=== PATIENT | male | born 1980 | race Caucasian/White ===

== ENCOUNTER 2017-07-01 07:34 | Inpatient (IN) | payer OTHER ==
[~2017-07-01] VITALS: Ht 175.3 cm; Wt 76.7 kg
[2017-07-01] MEDS ORDERED: VISCOUS LIDOCAINE 2% 15 ML UDC PO STA (07:46)
[2017-07-01] MEDS ORDERED: MORPHINE SULFATE 4 MG/ML CPJ (NOT FOR IM USE) IV STA (07:46)
[2017-07-01] MEDS ORDERED: MAGNESIUM/ALUMINUM HYDROXIDE/SIMETHICONE 30ML UDC PO STA (07:46)
[2017-07-01] MEDS ORDERED: SODIUM CHLORIDE 0.9% 1,000 ML IV ONE ×2 (07:46→09:00)
[2017-07-01] MEDS ORDERED: ONDANSETRON HCL 4MG/2ML VIAL IV STA (07:46)
[2017-07-01] MEDS ORDERED: LORAZEPAM 2MG/ML CPJ IV ONE ×2 (08:00→11:15)
[2017-07-01 08:26] LABS: BASOPHILS % 0.3 % (0.0-2.0); HEMATOCRIT. 35.5 % (42.0-52.0); HEMOGLOBIN. 12.5 g/dL (14.0-18.0); LYMPHOCYTES % 9.1 % (20.0-50.0); MEAN CORPUSCULAR HEMOGLOBIN 34.1 pg (28.0-32.0); MEAN CORPUSCULAR VOLUME 96.9 fL (80.0-94.0); MEAN PLATELET VOLUME 10.2 fl (7.4-10.4); MONOCYTES % 8.2 % (2.0-8.0); NEUTROPHILS % 82.4 % (40.0-76.0); PLATELET 149 x1000/uL (130-400); RED BLOOD CELL COUNT 3.67 mill/uL (4.7-6.1); RED CELL DISTRIBUTION WIDTH 12.8 % (11.6-14.6)
[2017-07-01 08:33] LABS: INR 1.5; PROTHROMBIN TIME 15.3 sec (9.4-11.6)
[2017-07-01 08:40] LABS: CARBON DIOXIDE 22 mEq/L (21-32); CHLORIDE 81 mEq/L (98-107)
[2017-07-01 08:44] LABS: CLARITY URINE CLOUDY (CLEAR); COLOR URINE ORANGE (YELLOW); GLUCOSE URINE NEGATIVE (NEGATIVE); KETONES URINE NEGATIVE (NEGATIVE); LEUKOCYTE ESTERASE URINE 2+ (NEGATIVE); NITRITE URINE POSITIVE (NEGATIVE); OCCULT BLOOD URINE TRACE (NEGATIVE); PROTEIN URINE 1+ (NEGATIVE); UROBILINOGEN URINE 0.2 E.U./dL (0.2-1.0)
[2017-07-01] MEDS ORDERED: DEXT 5%/0.45% NACL KCL 20MEQ/L 1,000 ML IV ONE (08:47)
[2017-07-01] MEDS ORDERED: MAGNESIUM 2 G PREMIX 50 ML IV ONE (09:00)
[2017-07-01] MEDS ORDERED: SODIUM CHLORIDE 0.9% 1000ML BAG (SEPSIS BOLUS) IV ONE (10:30)
[2017-07-01] MEDS ORDERED: CEFTRIAXONE 1 G PREMIX 50 ML IV ONE (11:15)
[2017-07-01] MEDS ORDERED: CHLORDIAZEPOXIDE 25MG CAPSULE PO ONE (11:15)
[2017-07-01 13:39] LABS: CARBON DIOXIDE 22 mEq/L (21-32); CHLORIDE 92 mEq/L (98-107)
[2017-07-01 14:30] VITALS: BP 129/88
[2017-07-01 15:00] VITALS: BP 127/90
[2017-07-01 16:00] VITALS: BP 127/90
[2017-07-01 17:39] VITALS: BP 137/89
[2017-07-01] MEDS: POTASSIUM CHLORIDE INJ 40 MEQ in DEXT 5% WATER 250 ML IV NR ×2 (17:57→18:09)
[2017-07-01 20:00] VITALS: BP 134/85
[2017-07-01] MEDS ORDERED: LORAZEPAM 2MG/ML CPJ IV PRN (20:00)
[2017-07-01] MEDS ORDERED: ONDANSETRON HCL 4MG/2ML VIAL IV PRN (20:00)
[2017-07-01] MEDS: CHLORDIAZEPOXIDE 25MG CAPSULE PO SCH (20:12)
[2017-07-01] MEDS: DEXT 5%/0.9% NACL 1,000 ML IV SCH (21:43)
[2017-07-01 22:00] VITALS: BP 129/82
[2017-07-02] VITALS (14 sets, daily range): BP systolic 112–142; BP diastolic 77–108
[2017-07-02] MEDS ORDERED: DIPHENHYDRAMINE 50MG/ML VIAL IV PRN (08:45)
[2017-07-02] MEDS ORDERED: CLONIDINE 0.1MG TABLET PO PRN (08:45)
[2017-07-02] MEDS ORDERED: TRAMADOL 50MG TABLET PO PRN (08:45)
[2017-07-02] MEDS ORDERED: NA PHOS,M-B/NA PHOS,DI-BA ENEMA 118ML PR PRN (08:45)
[2017-07-02] MEDS ORDERED: ACETAMINOPHEN 650MG SUPP PR PRN (08:45)
[2017-07-02] MEDS ORDERED: NA PHOS,M-B/NA PHOS,DI-BA ENEMA 118ML PR SCH (08:45)
[2017-07-02] MEDS ORDERED: HYDROCODONE/ACETAMINOPHEN 5/325MG TABLET PO PRN (08:45)
[2017-07-02] MEDS ORDERED: IPRATROPIUM/ALBUTEROL 0.5-3(2.5)MG/3ML NEB INH PRN (08:45)
[2017-07-02] MEDS ORDERED: GUAIFENESIN 200MG/10ML SUGAR FREE UDC PO PRN (08:45)
[2017-07-02] MEDS ORDERED: MAGNESIUM/ALUMINUM HYDROXIDE/SIMETHICONE 30ML UDC PO PRN (08:45)
[2017-07-02] MEDS ORDERED: DOCUSATE SODIUM 100MG CAPSULE PO PRN (08:45)
[2017-07-02] MEDS ORDERED: ACETAMINOPHEN 650MG/20.3ML UDC GT PRN (08:45)
[2017-07-02] MEDS ORDERED: ONDANSETRON HCL 4MG/2ML VIAL IV PRN (08:45)
[2017-07-02] MEDS: CHLORDIAZEPOXIDE 25MG CAPSULE PO SCH ×3 (08:59→17:32)
[2017-07-02] MEDS: DEXT 5%/0.9% NACL 1,000 ML IV SCH ×2 (09:00→12:43)
[2017-07-02] MEDS ORDERED: MAGNESIUM CITRATE 300ML SOLUTION PO SCH (10:00)
[2017-07-02 12:34] LABS: HEMATOCRIT. 34.5 % (42.0-52.0); MEAN CORPUSCULAR HEMOGLOBIN 34.6 pg (28.0-32.0); MEAN CORPUSCULAR VOLUME 99.2 fL (80.0-94.0); PLATELET 110 x1000/uL (130-400); RED BLOOD CELL COUNT 3.47 mill/uL (4.7-6.1); RED CELL DISTRIBUTION WIDTH 13.2 % (11.6-14.6)
[2017-07-02 12:37] LABS: CHLORIDE 95 mEq/L (98-107)
[2017-07-02 12:45] LABS: CARBON DIOXIDE 23 mEq/L (21-32)
[2017-07-02 13:10] LABS: PLATELET ESTIMATE SLIGHTLY DECREASED
[2017-07-02] MEDS: SODIUM CHLORIDE 0.9% INJ 3ML FLUSH IVF SCH ×2 (13:22→21:01)
[2017-07-02] MEDS ORDERED: POTASSIUM CHLORIDE 20MEQ TABLET SR PO NR ×2 (14:00→17:00)
[2017-07-02] MEDS ORDERED: MICONAZOLE NITRATE 2% OINT 71GM TOP SCH (21:00)
== END 2017-07-03 | disposition left against medical advice (07) | DRG 897 ==
LOC: ER 07:56 → 5EST 11:10 → EDBEDREQ 11:11 → ENRESERV 11:52 → 5EST 15:19
PROVIDERS: ADMIT Family Medicine; ATTEND Family Medicine
DX: F10.239 Alcohol dependence with withdrawal, unspecified (principal); D68.9 Coagulation defect, unspecified; E87.2 Acidosis; E87.1 Hypo-osmolality and hyponatremia; N39.0 Urinary tract infection, site not specified; K70.31 Alcoholic cirrhosis of liver with ascites; F41.9 Anxiety disorder, unspecified; F10.229 Alcohol dependence with intoxication, unspecified; E87.6 Hypokalemia; K80.20 Calculus of gallbladder without cholecystitis without obstruction; Z53.21 Procedure and treatment not carried out due to patient leaving prior to being seen by health care provider
CPT/HCPCS: 36415; 74000; 74176; 76700; 80048; 80053; 81001; 83605; 83690; 85007; 85025; 85027; 85610; 93005; 93970; 96361; 96365; 96367; 96375; 99291; J0696; J2060; J2270; J2405; J3475; J3480; J7030; J7042; J7050; J7060

== ENCOUNTER 2017-08-09 04:58 | Inpatient (IN) | payer OTHER ==
[~2017-08-09] VITALS: Ht 172.7 cm; Wt 66.7 kg
[2017-08-09 06:19] LABS: BASOPHILS % 0.9 % (0.0-2.0); EOSINOPHILS % 0.1 % (0.0-5.0); HEMATOCRIT. 35.1 % (42.0-52.0); HEMOGLOBIN. 11.9 g/dL (14.0-18.0); LYMPHOCYTES % 15.3 % (20.0-50.0); MEAN CORPUSCULAR HEMOGLOBIN 33.5 pg (28.0-32.0); MEAN CORPUSCULAR VOLUME 98.5 fL (80.0-94.0); MEAN PLATELET VOLUME 7.3 fl (7.4-10.4); MONOCYTES % 10.9 % (2.0-8.0); NEUTROPHILS % 72.8 % (40.0-76.0); PLATELET 325 x1000/uL (130-400); RED BLOOD CELL COUNT 3.57 mill/uL (4.7-6.1)
[2017-08-09 06:24] LABS: CLARITY URINE TURBID (CLEAR); COLOR URINE DARK YELLOW (YELLOW); GLUCOSE URINE NEGATIVE (NEGATIVE); KETONES URINE TRACE (NEGATIVE); LEUKOCYTE ESTERASE URINE TRACE (NEGATIVE); NITRITE URINE NEGATIVE (NEGATIVE); OCCULT BLOOD URINE NEGATIVE (NEGATIVE); PH URINE 5.5 (4.5-8.0); PROTEIN URINE TRACE (NEGATIVE); SPECIFIC GRAVITY URINE 1.023 (1.005-1.030)
[2017-08-09 06:24] LABS: INR 1.3; PROTHROMBIN TIME 13.5 sec (9.4-11.6)
[2017-08-09] MEDS ORDERED: MORPHINE SULFATE 4 MG/ML CPJ (NOT FOR IM USE) IV ONE (06:30)
[2017-08-09] MEDS ORDERED: CEFTRIAXONE 2 G PREMIX 50 ML IV ONE (06:45)
[2017-08-09 06:46] LABS: CARBON DIOXIDE 30 mEq/L (21-32); CHLORIDE 98 mEq/L (98-107); ETHANOL BLOOD < 10 mg/dL; TROPONIN I < 0.02 ng/mL (0.00-0.04)
[2017-08-09] MEDS ORDERED: MORPHINE SULFATE 2 MG/ML CPJ (NOT FOR IM USE) IV ONE (06:49)
[2017-08-09 07:06] LABS: *AMPHETAMINES SCREEN URINE NEGATIVE (NEGATIVE); *BARBITURATES SCREEN URINE NEGATIVE (NEGATIVE); *BENZODIAZEPINES SCREEN URINE PRESUMTIVE POSITIVE (NEGATIVE); *COCAINE SCREEN URINE NEGATIVE (NEGATIVE); CANNABINOID URINE SCREEN PRESUMTIVE POSITIVE (NEGATIVE); METHADONE URINE SCREEN NEGATIVE (NEGATIVE); OPIATES URINE SCREEN NEGATIVE (NEGATIVE); PHENCYCLIDINE URINE SCREEN NEGATIVE (NEGATIVE)
[2017-08-09 07:41] LABS: AMMONIA 23 uMol/L (<32)
[2017-08-09] MEDS ORDERED: LIDOCAINE HCL 1% 20ML VIAL (Pyxis) INJ ONE (09:44)
[2017-08-09] MEDS ORDERED: SODIUM BICARBONATE 4.2% 5 MEQ/10 ML DISP.SYRIN IV ONE (09:44)
[2017-08-09 12:00] VITALS: BP 109/72
[2017-08-09] MEDS ORDERED: MORPHINE SULFATE 2 MG/ML CPJ (NOT FOR IM USE) IV PRN (12:15)
[2017-08-09] MEDS ORDERED: DEXT 5%/0.45% NACL 1000ML 1,000 ML IV SCH (12:15)
[2017-08-09 16:00] VITALS: BP 105/74
[2017-08-09 16:48] LABS: BASOPHILS % 0.8 % (0.0-2.0); EOSINOPHILS % 0.7 % (0.0-5.0); HEMATOCRIT. 37.3 % (42.0-52.0); HEMOGLOBIN. 12.5 g/dL (14.0-18.0); LYMPHOCYTES % 25.5 % (20.0-50.0); MEAN CORPUSCULAR HEMOGLOBIN 33.5 pg (28.0-32.0); MEAN CORPUSCULAR VOLUME 100.1 fL (80.0-94.0); MEAN PLATELET VOLUME 8.2 fl (7.4-10.4); PLATELET 303 x1000/uL (130-400); RED BLOOD CELL COUNT 3.72 mill/uL (4.7-6.1); RED CELL DISTRIBUTION WIDTH 14.4 % (11.6-14.6)
[2017-08-09 16:54] LABS: CHLORIDE 98 mEq/L (98-107)
[2017-08-09 16:57] LABS: INR 1.4; PARTIAL THROMBOPLASTIN TIME 29.9 sec (23.4-31.0)
[2017-08-09 17:04] LABS: CARBON DIOXIDE 31 mEq/L (21-32)
[2017-08-09 20:00] VITALS: BP 104/68
[2017-08-10] VITALS: BP 100/66
[2017-08-10 04:00] VITALS: BP 99/66
[2017-08-10] MEDS ORDERED: CEFTRIAXONE 1 G PREMIX 50 ML IV SCH (06:00)
[2017-08-10 08:00] VITALS: BP 103/61
[2017-08-10 12:00] VITALS: BP 103/78
[2017-08-10 16:00] VITALS: BP 99/70
[2017-08-10 16:18] VITALS: BP 112/68
== END 2017-08-10 17:25 | disposition short-term general hospital (02) | DRG 947 ==
LOC: ER 06:02 → 6EST 06:32 → EDBEDREQSVC 06:42 → ENRESERV 06:48
PROVIDERS: ADMIT Family Medicine; ATTEND Family Medicine
PROC: 0W9G3ZZ Drainage of Peritoneal Cavity, Percutaneous Approach (ICD-10-PCS; principal; 2017-08-09)
DX: R18.8 Other ascites (principal); E43 Unspecified severe protein-calorie malnutrition; K74.60 Unspecified cirrhosis of liver; K56.7 Ileus, unspecified; D64.9 Anemia, unspecified; F10.21 Alcohol dependence, in remission; F17.200 Nicotine dependence, unspecified, uncomplicated; F12.90 Cannabis use, unspecified, uncomplicated; K76.0 Fatty (change of) liver, not elsewhere classified; F41.9 Anxiety disorder, unspecified; R16.1 Splenomegaly, not elsewhere classified; Z68.22 Body mass index [BMI] 22.0-22.9, adult
CPT/HCPCS: 36415; 49083; 71010; 74010; 76700; 80053; 80305; 81001; 82040; 82140; 83605; 83615; 83690; 83735; 84484; 85025; 85610; 85730; 87070; 87205; 88108; 88312; 89050; 93005; 96365; 96375; 99285; G0482; J0696; J2270; J3490

== ENCOUNTER 2017-11-27 03:38 | Emergency (ER) | payer OTHER ==
[~2017-11-27] VITALS: Ht 175.3 cm; Wt 64.0 kg
[2017-11-27] MEDS ORDERED: LORAZEPAM 1MG TABLET PO ONE (07:00)
[2017-11-27] MEDS: SODIUM CHLORIDE 0.9% 1,000 ML IV ONE ×2 (07:45→10:55)
[2017-11-27 09:38] LABS: *AMPHETAMINES SCREEN URINE NEGATIVE (NEGATIVE); *BARBITURATES SCREEN URINE NEGATIVE (NEGATIVE); *BENZODIAZEPINES SCREEN URINE NEGATIVE (NEGATIVE); *COCAINE SCREEN URINE NEGATIVE (NEGATIVE); CANNABINOID URINE SCREEN PRESUMTIVE POSITIVE (NEGATIVE); METHADONE URINE SCREEN NEGATIVE (NEGATIVE); OPIATES URINE SCREEN NEGATIVE (NEGATIVE); PHENCYCLIDINE URINE SCREEN NEGATIVE (NEGATIVE)
[2017-11-27] MEDS ORDERED: LORAZEPAM 0.5MG TABLET PO ONE (10:45)
[2017-11-27] MEDS ORDERED: KETOROLAC 15MG/ML VIAL IV ONE (13:30)
[2017-11-27 13:50] VITALS: BP 137/82
== END 2017-11-27 13:53 | disposition home or self-care (01) ==
LOC: ER 03:52
DX: F41.9 Anxiety disorder, unspecified (principal)
CPT/HCPCS: 80305; 93005; 96361; 96374; 99285; J1885; J7030

== ENCOUNTER 2018-01-16 08:07 | Inpatient (IN) | payer OTHER ==
[~2018-01-16] VITALS: Ht 167.6 cm; Wt 65.5 kg
[2018-01-16] MEDS ORDERED: LORAZEPAM 2MG/ML CPJ IV STA ×2 (09:16→19:13)
[2018-01-16] MEDS ORDERED: SODIUM CHLORIDE 0.9% 1,000 ML IV ONE (09:16)
[2018-01-16] MEDS ORDERED: ONDANSETRON HCL 4MG/2ML VIAL IV STA (09:16)
[2018-01-16] MEDS ORDERED: MORPHINE SULFATE 4 MG/ML CPJ (NOT FOR IM USE) IV STA (09:16)
[2018-01-16] MEDS ORDERED: FOLIC ACID 1 MG, THIAMINE HCL 100 MG, MVI, ADULT NO.1 10 ML in DEXTROSE 5% WATER 1,000 ML IV ONE ×4 (09:30)
[2018-01-16 09:33] LABS: CHLORIDE 71 mEq/L (98-107)
[2018-01-16 09:36] LABS: INR 1.1; PARTIAL THROMBOPLASTIN TIME 28.2 sec (23.4-31.0); PROTHROMBIN TIME 11.8 sec (9.4-11.6)
[2018-01-16 09:38] LABS: ETHANOL BLOOD 130 mg/dL
[2018-01-16 10:00] LABS: HEMOGLOBIN. 15.1 g/dL (14.0-18.0); MEAN CORPUSCULAR HEMOGLOBIN 30.1 pg (28.0-32.0); MEAN CORPUSCULAR VOLUME 83.5 fL (80.0-94.0); MEAN PLATELET VOLUME 8.9 fl (7.4-10.4); PLATELET 162 x1000/uL (130-400); RED BLOOD CELL COUNT 5.03 mill/uL (4.7-6.1); RED CELL DISTRIBUTION WIDTH 14.3 % (11.6-14.6)
[2018-01-16] MEDS ORDERED: AMIODARONE HCL 900 MG in DEXT 5% WATER 482 ML IV STA (10:35)
[2018-01-16] MEDS ORDERED: LORAZEPAM 2MG/ML CPJ ONE ×2 (10:44→19:15)
[2018-01-16] MEDS ORDERED: AMIODARONE HCL 50MG/ML 3ML VIAL IV ONE (10:45)
[2018-01-16 10:57] LABS: PLATELET ESTIMATE NORMAL
[2018-01-16] MEDS ORDERED: VECURONIUM BROMIDE 10 MG/VIAL IV ONE ×2 (11:00→11:57)
[2018-01-16] MEDS ORDERED: PROPOFOL 10MG/ML 100ML 100 ML IV ONE ×2 (11:00→14:00)
[2018-01-16] MEDS ORDERED: LEVETIRACETAM 500MG PREMIX 100 ML IV ONE (11:00)
[2018-01-16 11:05] LABS: CLARITY URINE CLEAR (CLEAR); COLOR URINE YELLOW (YELLOW); KETONES URINE 1+ (NEGATIVE); LEUKOCYTE ESTERASE URINE NEGATIVE (NEGATIVE); NITRITE URINE NEGATIVE (NEGATIVE); OCCULT BLOOD URINE TRACE (NEGATIVE); PH URINE 5.5 (4.5-8.0); PROTEIN URINE 2+ (NEGATIVE); SPECIFIC GRAVITY URINE 1.012 (1.005-1.030); UROBILINOGEN URINE 0.2 E.U./dL (0.2-1.0)
[2018-01-16] MEDS ORDERED: AMIODARONE HCL 900 MG in DEXT 5% WATER 482 ML IV SCH (11:15)
[2018-01-16 11:19] LABS: BG BASE EXCESS -11.6 mmol/L (-2.0-2.0); BG CARBOXYHEMOGLOBIN 0.7 % (0.5-1.5); BG DEOXYHEMOGLOBIN 0.3 % (0.0-5.0); BG FRACTION INSPIRED OXYGEN 100; BG HCO3 ACT 20.4 mmol/L (22.0-26.0); BG METHEMOGLOBIN 0.7 % (0.0-1.5); BG OXYGEN SATURATION 99.7 % (92.0-98.5); BG OXYHEMOGLOBIN 98.3 % (94.0-97.0); BG PCO2 75.3 mmHg (35.0-45.0); BG PH 7.051 (7.350-7.450); BG PO2 > 602.7 mmHg (75.0-100.0); BG SAMPLE SITE RIGHT BRACHIAL; BG TIDAL VOLUME(mL) 500 mL; BG TOTAL HEMOGLOBIN 15.5 g/dL (12.0-18.0); BG VENT MODE VENT - A/C; BG VENT RATE 12 set
[2018-01-16 11:25] LABS: *AMPHETAMINES SCREEN URINE NEGATIVE (NEGATIVE); *BARBITURATES SCREEN URINE NEGATIVE (NEGATIVE); *BENZODIAZEPINES SCREEN URINE PRESUMTIVE POSITIVE (NEGATIVE); *COCAINE SCREEN URINE NEGATIVE (NEGATIVE); CANNABINOID URINE SCREEN PRESUMTIVE POSITIVE (NEGATIVE); METHADONE URINE SCREEN NEGATIVE (NEGATIVE); OPIATES URINE SCREEN PRESUMTIVE POSITIVE (NEGATIVE); PHENCYCLIDINE URINE SCREEN NEGATIVE (NEGATIVE)
[2018-01-16] MEDS ORDERED: DEXT 5%/0.45% NACL 1000ML 1,000 ML IV SCH (11:39)
[2018-01-16] MEDS ORDERED: CLONIDINE 0.1MG TABLET PO PRN (11:45)
[2018-01-16] MEDS ORDERED: LORAZEPAM 2MG/ML CPJ IV PRN (11:45)
[2018-01-16] MEDS ORDERED: NA PHOS,M-B/NA PHOS,DI-BA ENEMA 118ML PR PRN (11:45)
[2018-01-16] MEDS ORDERED: SUCCINYLCHOLINE CHLORIDE 200MG/10ML VIAL IV ONE ×3 (11:45→14:00)
[2018-01-16] MEDS ORDERED: HYDROCODONE/ACETAMINOPHEN 5/325MG TABLET PO PRN (11:45)
[2018-01-16] MEDS ORDERED: ACETAMINOPHEN 325MG TABLET PO PRN (11:45)
[2018-01-16] MEDS ORDERED: DIPHENHYDRAMINE 50MG/ML VIAL IV PRN (11:45)
[2018-01-16] MEDS ORDERED: ETOMIDATE 2MG/ML 10ML VIAL IV ONE ×2 (11:45→14:00)
[2018-01-16] MEDS ORDERED: IPRATROPIUM/ALBUTEROL 0.5-3(2.5)MG/3ML NEB INH PRN (11:45)
[2018-01-16] MEDS ORDERED: MAGNESIUM/ALUMINUM HYDROXIDE/SIMETHICONE 30ML UDC PO PRN (11:45)
[2018-01-16] MEDS ORDERED: GUAIFENESIN 200MG/10ML SUGAR FREE UDC PO PRN (11:45)
[2018-01-16] MEDS ORDERED: ONDANSETRON HCL 4MG/2ML VIAL IV PRN (11:45)
[2018-01-16] MEDS ORDERED: STERILE WATER FOR INJECTION 10ML VIAL ONE (11:57)
[2018-01-16] MEDS ORDERED: IPRATROPIUM/ALBUTEROL 0.5-3(2.5)MG/3ML NEB HHN PRN (12:00)
[2018-01-16 12:18] LABS: AMMONIA 47 uMol/L (<32)
[2018-01-16] MEDS ORDERED: HYDRALAZINE 20MG/ML VIAL IV PRN (12:45)
[2018-01-16 13:18] LABS: CHLORIDE 71 mEq/L (98-107)
[2018-01-16] MEDS ORDERED: MIDAZOLAM HCL 2 MG/2 ML VIAL ONE ×2 (13:23→13:24)
[2018-01-16 13:24] LABS: HDL CHOLESTEROL 95 mg/dL (40-59); LDL CHOLESTEROL 101 mg/dL (5-100)
[2018-01-16] MEDS ORDERED: MIDAZOLAM HCL 2 MG/2 ML VIAL IV ONE (13:30)
[2018-01-16] MEDS ORDERED: IOHEXOL-300 100 ML BOTTLE ONE (13:42)
[2018-01-16 13:45] LABS: HEPATITIS B SURFACE ANTIGEN NEGATIVE
[2018-01-16] MEDS ORDERED: LORAZEPAM 2MG/ML CPJ IV ONE (13:45)
[2018-01-16] MEDS ORDERED: KCL 20MEQ/100ML PREMIX 100 ML IV ONE ×2 (13:45→21:30)
[2018-01-16 14:13] LABS: HEPATITIS B CORE AB IGM NEGATIVE
[2018-01-16 14:15] LABS: HEPATITIS A AB IGM NEGATIVE (NEGATIVE)
[2018-01-16] MEDS ORDERED: MAGNESIUM 1 G PREMIX 100 ML IV ONE (14:15)
[2018-01-16 15:08] LABS: BG BASE EXCESS 12.4 mmol/L (-2.0-2.0); BG CARBOXYHEMOGLOBIN 0.8 % (0.5-1.5); BG DEOXYHEMOGLOBIN 4.1 % (0.0-5.0); BG FRACTION INSPIRED OXYGEN 40; BG HCO3 ACT 37.1 mmol/L (22.0-26.0); BG OXYGEN SATURATION 95.8 % (92.0-98.5); BG OXYHEMOGLOBIN 94.1 % (94.0-97.0); BG PCO2 46.5 mmHg (35.0-45.0); BG PO2 80.6 mmHg (75.0-100.0); BG SAMPLE SITE RIGHT BRACHIAL; BG TIDAL VOLUME(mL) 500 mL; BG TOTAL HEMOGLOBIN 15.7 g/dL (12.0-18.0); BG VENT MODE VENT - A/C; BG VENT RATE 12 set
[2018-01-16 15:32] LABS: CREATINE KINASE MB FRACTION 7.7 ng/mL (0.5-3.6)
[2018-01-16] MEDS ORDERED: POTASSIUM CHLORIDE INJ 20 MEQ in SODIUM CHLORIDE 0.9% 100 ML IV NR (16:00)
[2018-01-16] MEDS ORDERED: MIDAZOLAM HCL 50 MG in DEXTROSE 5% WATER 40 ML IV ONE ×2 (17:15→17:30)
[2018-01-16 20:30] VITALS: BP 116/79
[2018-01-16] MEDS ORDERED: KCL 20MEQ/100ML PREMIX 100 ML IV SCH (20:45)
[2018-01-16 21:00] VITALS: BP 120/83
[2018-01-16] MEDS ORDERED: POTASSIUM CHLORIDE 20MEQ/PACKET NG NR (21:00)
[2018-01-16] MEDS ORDERED: LACTULOSE 20G/30ML UDC PO NR (21:00)
[2018-01-16] MEDS: PROPOFOL 10MG/ML 100ML 100 ML IV PRN (21:04)
[2018-01-16 22:00] VITALS: BP 108/78
[2018-01-16] MEDS ORDERED: PANTOPRAZOLE SODIUM 40 MG/VIAL IV SCH (22:00)
[2018-01-16] MEDS: LEVETIRACETAM 500MG PREMIX 100 ML IV SCH (22:26)
[2018-01-16] MEDS: PIPERACILLIN/TAZ 3.375G PREMIX 50 ML IV SCH (22:26)
[2018-01-16] MEDS: ENOXAPARIN 40MG/0.4ML SYR SUBCUT SCH (22:29)
[2018-01-16] MEDS ORDERED: LEVETIRACETAM 500 MG in SODIUM CHLORIDE 0.9% 100 ML IV SCH (22:30)
[2018-01-16 23:00] VITALS: BP 111/84
[2018-01-16] MEDS ORDERED: POTASSIUM CHLORIDE INJ 40 MEQ in DEXT 5% WATER 500 ML IV NR (23:00)
[2018-01-16 23:26] LABS: CREATINE KINASE MB FRACTION 6.7 ng/mL (0.5-3.6)
[2018-01-17] VITALS (33 sets, daily range): BP systolic 97–126; BP diastolic 58–87
[2018-01-17] MEDS: MIDAZOLAM HCL 100 MG in DEXT 5% WATER 80 ML IV PRN (02:14)
[2018-01-17] MEDS: IPRATROPIUM/ALBUTEROL 0.5-3(2.5)MG/3ML NEB HHN SCH ×5 (04:13→20:21)
[2018-01-17] MEDS: PIPERACILLIN/TAZ 3.375G PREMIX 50 ML IV SCH ×3 (05:34→18:14)
[2018-01-17 05:46] LABS: HEMATOCRIT. 42.9 % (42.0-52.0); HEMOGLOBIN. 15.3 g/dL (14.0-18.0); MEAN CORPUSCULAR HEMOGLOBIN 30.4 pg (28.0-32.0); MEAN CORPUSCULAR VOLUME 85.2 fL (80.0-94.0); MEAN PLATELET VOLUME 9.9 fl (7.4-10.4); PLATELET 149 x1000/uL (130-400); RED BLOOD CELL COUNT 5.04 mill/uL (4.7-6.1); RED CELL DISTRIBUTION WIDTH 14.9 % (11.6-14.6)
[2018-01-17 06:01] LABS: INR 1.1; PARTIAL THROMBOPLASTIN TIME 30.5 sec (23.4-31.0); PROTHROMBIN TIME 11.7 sec (9.4-11.6)
[2018-01-17 06:19] LABS: CHLORIDE 79 mEq/L (98-107)
[2018-01-17 06:39] LABS: HDL CHOLESTEROL 77 mg/dL (40-59); LDL CHOLESTEROL 93 mg/dL (5-100); PHOSPHORUS 2.5 mg/dL (2.5-4.9); T4 FREE 1.63 ng/dL (0.76-1.46)
[2018-01-17] MEDS ORDERED: POTASSIUM CHLORIDE 20MEQ/PACKET PO SCH (07:30)
[2018-01-17] MEDS: PROPOFOL 10MG/ML 100ML 100 ML IV PRN (07:55)
[2018-01-17] MEDS: ASPIRIN 81MG EC TABLET PO SCH (07:57)
[2018-01-17] MEDS: AMIODARONE HCL 200 MG TABLET NG SCH ×3 (08:00→21:12)
[2018-01-17 08:14] LABS: BG BASE EXCESS 9.7 mmol/L (-2.0-2.0); BG CARBOXYHEMOGLOBIN 0.5 % (0.5-1.5); BG DEOXYHEMOGLOBIN 0.7 % (0.0-5.0); BG FRACTION INSPIRED OXYGEN 40; BG HCO3 ACT 32.2 mmol/L (22.0-26.0); BG METHEMOGLOBIN 0.2 % (0.0-1.5); BG OXYGEN SATURATION 99.3 % (92.0-98.5); BG OXYHEMOGLOBIN 98.6 % (94.0-97.0); BG PCO2 35.9 mmHg (35.0-45.0); BG PO2 175.2 mmHg (75.0-100.0); BG SAMPLE SITE RIGHT BRACHIAL; BG TIDAL VOLUME(mL) 500 mL; BG TOTAL HEMOGLOBIN 15.3 g/dL (12.0-18.0); BG VENT MODE VENT - A/C; BG VENT RATE 12 set
[2018-01-17] MEDS: LEVETIRACETAM 500MG PREMIX 100 ML IV SCH ×2 (09:00→21:12)
[2018-01-17] MEDS ORDERED: FOLIC ACID 1 MG, THIAMINE HCL 100 MG, MVI, ADULT NO.1 10 ML in DEXTROSE 5% WATER 1,000 ML IV SCH ×16 (09:00→14:30)
[2018-01-17 09:08] LABS: CHLORIDE 80 mEq/L (98-107)
[2018-01-17 09:08] LABS: AMMONIA 32 uMol/L (<32)
[2018-01-17 09:26] LABS: CREATINE KINASE 447 IU/L (39-308); CREATINE KINASE MB FRACTION 4.3 ng/mL (0.5-3.6)
[2018-01-17] MEDS: FAMOTIDINE 20MG/2ML VIAL IV SCH (09:52)
[2018-01-17] MEDS ORDERED: THIAMINE HCL 100 MG in SODIUM CHLORIDE 0.9% 49 ML IV NR (13:00)
[2018-01-17 13:17] LABS: PLATELET ESTIMATE NORMAL
[2018-01-17] MEDS ORDERED: PROPOFOL 10MG/ML 100ML 100 ML IV PRN (17:41)
[2018-01-17] MEDS: SODIUM CHLORIDE 0.9% 1,000 ML IV SCH (19:45)
[2018-01-17] MEDS: ENOXAPARIN 40MG/0.4ML SYR SUBCUT SCH (21:12)
[2018-01-17] MEDS: MORPHINE SULFATE 4 MG/ML CPJ (NOT FOR IM USE) IV PRN (21:56)
[2018-01-18] VITALS (33 sets, daily range): BP systolic 102–139; BP diastolic 53–79
[2018-01-18] MEDS: IPRATROPIUM/ALBUTEROL 0.5-3(2.5)MG/3ML NEB HHN SCH ×6 (00:19→20:08)
[2018-01-18] MEDS: PIPERACILLIN/TAZ 3.375G PREMIX 50 ML IV SCH ×4 (01:21→18:19)
[2018-01-18] MEDS: PROPOFOL 10MG/ML 100ML 100 ML IV PRN ×3 (01:23→13:54)
[2018-01-18] MEDS: MORPHINE SULFATE 4 MG/ML CPJ (NOT FOR IM USE) IV PRN (05:05)
[2018-01-18 05:54] LABS: BASOPHILS % 0.5 % (0.0-2.0); EOSINOPHILS % 0.2 % (0.0-5.0); HEMATOCRIT. 41.9 % (42.0-52.0); HEMOGLOBIN. 14.5 g/dL (14.0-18.0); LYMPHOCYTES % 25.3 % (20.0-50.0); MEAN CORPUSCULAR HEMOGLOBIN 30.4 pg (28.0-32.0); MEAN CORPUSCULAR VOLUME 87.8 fL (80.0-94.0); MEAN PLATELET VOLUME 9.9 fl (7.4-10.4); MONOCYTES % 13.6 % (2.0-8.0); NEUTROPHILS % 60.4 % (40.0-76.0); PLATELET 144 x1000/uL (130-400); RED BLOOD CELL COUNT 4.77 mill/uL (4.7-6.1); RED CELL DISTRIBUTION WIDTH 14.7 % (11.6-14.6)
[2018-01-18 06:09] LABS: CHLORIDE 85 mEq/L (98-107)
[2018-01-18 06:10] LABS: PHOSPHORUS 3.9 mg/dL (2.5-4.9)
[2018-01-18 07:28] LABS: BG BASE EXCESS 9.8 mmol/L (-2.0-2.0); BG CARBOXYHEMOGLOBIN 1.1 % (0.5-1.5); BG DEOXYHEMOGLOBIN 1.2 % (0.0-5.0); BG HCO3 ACT 33.9 mmol/L (22.0-26.0); BG METHEMOGLOBIN 0.4 % (0.0-1.5); BG OXYGEN SATURATION 98.8 % (92.0-98.5); BG OXYHEMOGLOBIN 97.3 % (94.0-97.0); BG PCO2 43.3 mmHg (35.0-45.0); BG PH 7.512 (7.350-7.450); BG PO2 126.6 mmHg (75.0-100.0); BG SAMPLE SITE RIGHT BRACHIAL; BG TIDAL VOLUME(mL) 500 mL; BG TOTAL HEMOGLOBIN 14.6 g/dL (12.0-18.0); BG VENT MODE VENT - A/C; BG VENT RATE 12 set
[2018-01-18] MEDS ORDERED: POTASSIUM CHLORIDE 20MEQ TABLET SR PO NR (07:30)
[2018-01-18] MEDS: FOLIC ACID 1 MG, THIAMINE HCL 100 MG, MVI, ADULT NO.1 10 ML in DEXTROSE 5% WATER 1,000 ML IV SCH ×4 (07:48)
[2018-01-18] MEDS: AMIODARONE HCL 200 MG TABLET NG SCH ×2 (08:00→21:14)
[2018-01-18] MEDS: ASPIRIN 81MG EC TABLET PO SCH (08:00)
[2018-01-18] MEDS ORDERED: POTASSIUM CHLORIDE INJ 60 MEQ in SODIUM CHLORIDE 0.9% 500 ML IV NR (08:00)
[2018-01-18] MEDS: DOCUSATE SODIUM 100MG CAPSULE PO PRN (08:01)
[2018-01-18] MEDS: AMLODIPINE 2.5MG TABLET NG SCH (08:01)
[2018-01-18] MEDS: FAMOTIDINE 20MG/2ML VIAL IV SCH (08:01)
[2018-01-18] MEDS: SODIUM CHLORIDE 0.9% 1,000 ML IV SCH ×2 (08:19→21:15)
[2018-01-18 08:55] LABS: AMMONIA 23 uMol/L (<32)
[2018-01-18] MEDS: LEVETIRACETAM 500MG PREMIX 100 ML IV SCH ×2 (10:48→21:15)
[2018-01-18] MEDS: THIAMINE HCL 100MG TABLET PO SCH (13:58)
[2018-01-18] MEDS ORDERED: LORAZEPAM 2MG/ML CPJ IV PRN (15:45)
[2018-01-18 20:17] LABS: BG BASE EXCESS 8.6 mmol/L (-2.0-2.0); BG CARBOXYHEMOGLOBIN 0.5 % (0.5-1.5); BG DEOXYHEMOGLOBIN 1.5 % (0.0-5.0); BG FRACTION INSPIRED OXYGEN 30; BG HCO3 ACT 32.4 mmol/L (22.0-26.0); BG METHEMOGLOBIN 0.4 % (0.0-1.5); BG OXYGEN SATURATION 98.5 % (92.0-98.5); BG OXYHEMOGLOBIN 97.6 % (94.0-97.0); BG PH 7.515 (7.350-7.450); BG PO2 119.3 mmHg (75.0-100.0); BG PRESSURE SUPPORT 12; BG SAMPLE SITE RIGHT RADIAL; BG TIDAL VOLUME(mL) 500 mL; BG VENT MODE VENT - SIMV; BG VENT RATE 8 set
[2018-01-18] MEDS ORDERED: PROPOFOL 200MG/20ML VIAL IV ONE (20:45)
[2018-01-18] MEDS: ENOXAPARIN 40MG/0.4ML SYR SUBCUT SCH (21:14)
[2018-01-18] MEDS: MIDAZOLAM HCL 100 MG in DEXT 5% WATER 80 ML IV PRN (22:24)
[2018-01-19] VITALS (23 sets, daily range): BP systolic 92–135; BP diastolic 49–81
[2018-01-19] MEDS: PIPERACILLIN/TAZ 3.375G PREMIX 50 ML IV SCH ×4 (00:29→18:00)
[2018-01-19] MEDS: PROPOFOL 10MG/ML 100ML 100 ML IV PRN ×2 (00:30→03:39)
[2018-01-19] MEDS: IPRATROPIUM/ALBUTEROL 0.5-3(2.5)MG/3ML NEB HHN SCH ×5 (00:30→21:26)
[2018-01-19 06:05] LABS: BASOPHILS % 0.6 % (0.0-2.0); EOSINOPHILS % 1.5 % (0.0-5.0); HEMATOCRIT. 36.7 % (42.0-52.0); HEMOGLOBIN. 12.7 g/dL (14.0-18.0); LYMPHOCYTES % 22.2 % (20.0-50.0); MEAN CORPUSCULAR HEMOGLOBIN 30.5 pg (28.0-32.0); MEAN CORPUSCULAR VOLUME 87.9 fL (80.0-94.0); MEAN PLATELET VOLUME 9.6 fl (7.4-10.4); NEUTROPHILS % 66.7 % (40.0-76.0); PLATELET 148 x1000/uL (130-400); RED BLOOD CELL COUNT 4.17 mill/uL (4.7-6.1); RED CELL DISTRIBUTION WIDTH 14.6 % (11.6-14.6)
[2018-01-19 06:31] LABS: CHLORIDE 95 mEq/L (98-107)
[2018-01-19 06:37] LABS: PHOSPHORUS 3.7 mg/dL (2.5-4.9)
[2018-01-19] MEDS ORDERED: POTASSIUM CHLORIDE 20MEQ TABLET SR PO SCH (06:45)
[2018-01-19 08:24] LABS: BG BASE EXCESS 4.4 mmol/L (-2.0-2.0); BG CARBOXYHEMOGLOBIN 0.6 % (0.5-1.5); BG DEOXYHEMOGLOBIN 1.6 % (0.0-5.0); BG FRACTION INSPIRED OXYGEN 30; BG HCO3 ACT 28.2 mmol/L (22.0-26.0); BG METHEMOGLOBIN 0.3 % (0.0-1.5); BG OXYGEN SATURATION 98.4 % (92.0-98.5); BG OXYHEMOGLOBIN 97.5 % (94.0-97.0); BG PCO2 38.9 mmHg (35.0-45.0); BG PH 7.478 (7.350-7.450); BG PO2 112.9 mmHg (75.0-100.0); BG PRESSURE SUPPORT 12; BG SAMPLE SITE RIGHT RADIAL; BG TIDAL VOLUME(mL) 500 mL; BG TOTAL HEMOGLOBIN 12.9 g/dL (12.0-18.0); BG VENT MODE VENT - SIMV; BG VENT RATE 8 set
[2018-01-19] MEDS: THIAMINE HCL 100MG TABLET PO SCH (08:30)
[2018-01-19] MEDS: AMLODIPINE 2.5MG TABLET NG SCH (08:30)
[2018-01-19] MEDS: ASPIRIN 81MG EC TABLET PO SCH (08:30)
[2018-01-19] MEDS: AMIODARONE HCL 200 MG TABLET NG SCH ×2 (08:30→21:03)
[2018-01-19] MEDS: DOCUSATE SODIUM 100MG CAPSULE PO PRN (08:30)
[2018-01-19] MEDS: FAMOTIDINE 20MG/2ML VIAL IV SCH (08:30)
[2018-01-19] MEDS: MIDAZOLAM HCL 100 MG in DEXT 5% WATER 80 ML IV PRN (08:32)
[2018-01-19] MEDS: FOLIC ACID 1 MG, THIAMINE HCL 100 MG, MVI, ADULT NO.1 10 ML in DEXTROSE 5% WATER 1,000 ML IV SCH ×4 (09:00)
[2018-01-19] MEDS ORDERED: FUROSEMIDE 40MG/4ML VIAL IVP NR (10:00)
[2018-01-19] MEDS ORDERED: POTASSIUM CHLORIDE INJ 40 MEQ in DEXT 5% WATER 250 ML IV NR (11:00)
[2018-01-19] MEDS: LEVETIRACETAM 500MG PREMIX 100 ML IV SCH ×2 (11:08→21:01)
[2018-01-19] MEDS: RISPERIDONE 0.5MG TABLET NG SCH ×2 (11:08→17:00)
[2018-01-19 11:31] LABS: BG BASE EXCESS 8.5 mmol/L (-2.0-2.0); BG CARBOXYHEMOGLOBIN 0.7 % (0.5-1.5); BG DEOXYHEMOGLOBIN 1.7 % (0.0-5.0); BG FRACTION INSPIRED OXYGEN 30; BG HCO3 ACT 30.7 mmol/L (22.0-26.0); BG METHEMOGLOBIN 0.3 % (0.0-1.5); BG OXYGEN SATURATION 98.3 % (92.0-98.5); BG OXYHEMOGLOBIN 97.3 % (94.0-97.0); BG PCO2 34.5 mmHg (35.0-45.0); BG PH 7.567 (7.350-7.450); BG PO2 100.8 mmHg (75.0-100.0); BG PRESSURE SUPPORT 8; BG SAMPLE SITE RIGHT RADIAL; BG VENT MODE VENT - CPAP
[2018-01-19] MEDS: SODIUM CHLORIDE 0.9% 1,000 ML IV SCH (11:45)
[2018-01-19] MEDS: ENOXAPARIN 40MG/0.4ML SYR SUBCUT SCH (21:01)
[2018-01-20] MEDS ORDERED: POTASSIUM CHLORIDE 20MEQ/PACKET NG SCH (09:00)
[2018-01-20] MEDS ORDERED: FUROSEMIDE 40MG/4ML VIAL IVP SCH (09:00)
== END 2018-01-19 22:20 | disposition short-term general hospital (02) | DRG 208 ==
LOC: ER 08:25 → CVICU 09:28 → EDBEDREQSVC 10:52 → EDBEDREQ 10:52 → ENRESERV 18:48
PROVIDERS: ADMIT Internal Medicine; ATTEND Internal Medicine
PROC: 0BH17EZ Insertion of Endotracheal Airway into Trachea, Via Natural or Artificial Opening (ICD-10-PCS; principal; 2018-01-16)
PROC: 5A1945Z Respiratory Ventilation, 24-96 Consecutive Hours (ICD-10-PCS; 2018-01-16)
DX: J96.01 Acute respiratory failure with hypoxia (principal); I21.4 Non-ST elevation (NSTEMI) myocardial infarction; I46.9 Cardiac arrest, cause unspecified; G93.41 Metabolic encephalopathy; E46 Unspecified protein-calorie malnutrition; E87.4 Mixed disorder of acid-base balance; R56.9 Unspecified convulsions; M62.82 Rhabdomyolysis; F10.239 Alcohol dependence with withdrawal, unspecified; I47.2 Ventricular tachycardia; E87.1 Hypo-osmolality and hyponatremia; I42.9 Cardiomyopathy, unspecified; E86.0 Dehydration; K70.30 Alcoholic cirrhosis of liver without ascites; D64.9 Anemia, unspecified; E87.6 Hypokalemia; F19.10 Other psychoactive substance abuse, uncomplicated; I25.10 Atherosclerotic heart disease of native coronary artery without angina pectoris; I27.20 Pulmonary hypertension, unspecified; I50.9 Heart failure, unspecified; Y90.6 Blood alcohol level of 120-199 mg/100 ml; F41.9 Anxiety disorder, unspecified; Z68.23 Body mass index [BMI] 23.0-23.9, adult
CPT/HCPCS: 36415; 36600; 70450; 71045; 74018; 74177; 76700; 78580; 80048; 80053; 80061; 80076; 80305; 81003; 82140; 82375; 82533; 82550; 82553; 82805; 83690; 83735; 83930; 84100; 84132; 84439; 84443; 84478; 84484; 85025; 85610; 85730; 86705; 86709; 86803; 86850; 86900; 87070; 87340; 92610; 93005; 93306; 93970; 94002; 94003; 94640; A4216; C9113; G0482; J0282; J0330; J1650; J1940; J1953; J2060; J2250; J2270; J2405; J2543; J2704; J3411; J3475; J3480; J3490; J7030; J7040; J7050; J7060; J7070; J7620; Q9967

== ENCOUNTER 2018-01-25 11:09 | Emergency (ER) | payer OTHER ==
[~2018-01-25] VITALS: Ht 172.7 cm; Wt 66.0 kg
[2018-01-25] MEDS ORDERED: LORAZEPAM 2MG/ML CPJ IV ONE (11:30)
[2018-01-25 11:50] LABS: BASOPHILS % 0.9 % (0.0-2.0); EOSINOPHILS % 0.3 % (0.0-5.0); HEMATOCRIT. 38.4 % (42.0-52.0); HEMOGLOBIN. 13.2 g/dL (14.0-18.0); INR 1.1; LYMPHOCYTES % 27.1 % (20.0-50.0); MEAN CORPUSCULAR VOLUME 87.3 fL (80.0-94.0); MEAN PLATELET VOLUME 8.3 fl (7.4-10.4); MONOCYTES % 14.3 % (2.0-8.0); NEUTROPHILS % 57.4 % (40.0-76.0); PLATELET 342 x1000/uL (130-400); PROTHROMBIN TIME 11.6 sec (9.4-11.6); RED CELL DISTRIBUTION WIDTH 14.5 % (11.6-14.6)
[2018-01-25 11:53] LABS: CHLORIDE 100 mEq/L (98-107)
[2018-01-25 17:20] VITALS: BP 115/67
== END 2018-01-25 17:35 | disposition short-term general hospital (02) ==
LOC: ER 11:52
DX: F41.0 Panic disorder [episodic paroxysmal anxiety] (principal); K76.9 Liver disease, unspecified; D64.9 Anemia, unspecified; Z88.3 Allergy status to other anti-infective agents; Z95.810 Presence of automatic (implantable) cardiac defibrillator
CPT/HCPCS: 36415; 71045; 80053; 83880; 84484; 85025; 85610; 93005; 96374; 99285; J2060; Z7610

== ENCOUNTER 2018-03-09 16:34 | Emergency (ER) | payer OTHER ==
[~2018-03-09] VITALS: Ht 177.8 cm; Wt 80.0 kg
[2018-03-09 16:36] VITALS: BP 109/70
== END 2018-03-09 19:53 | disposition left against medical advice (07) ==
LOC: ER 16:49
DX: Z53.21 Procedure and treatment not carried out due to patient leaving prior to being seen by health care provider (principal)

== ENCOUNTER 2018-03-09 22:28 | Emergency (ER) | payer OTHER ==
[~2018-03-09] VITALS: Ht 175.3 cm; Wt 64.0 kg
[2018-03-10] LABS: CHLORIDE 107 mEq/L (98-107)
[2018-03-10 00:01] LABS: BASOPHILS % 0.5 % (0.0-2.0); EOSINOPHILS % 0.4 % (0.0-5.0); HEMOGLOBIN. 12.5 g/dL (14.0-18.0); LYMPHOCYTES % 36.8 % (20.0-50.0); MEAN CORPUSCULAR HEMOGLOBIN 30.8 pg (28.0-32.0); MEAN CORPUSCULAR VOLUME 88.9 fL (80.0-94.0); MEAN PLATELET VOLUME 8.6 fl (7.4-10.4); MONOCYTES % 7.8 % (2.0-8.0); NEUTROPHILS % 54.5 % (40.0-76.0); PLATELET 120 x1000/uL (130-400); RED BLOOD CELL COUNT 4.05 mill/uL (4.7-6.1); RED CELL DISTRIBUTION WIDTH 14.5 % (11.6-14.6)
[2018-03-10 00:03] LABS: INR 1.1; PROTHROMBIN TIME 11.3 sec (9.4-11.6)
[2018-03-10] MEDS ORDERED: ASPIRIN 81MG TABLET PO ONE (00:15)
[2018-03-10] MEDS ORDERED: MORPHINE SULFATE 4 MG/ML CPJ (NOT FOR IM USE) IV ONE (00:15)
[2018-03-10 03:11] LABS: CLARITY URINE CLEAR (CLEAR); COLOR URINE YELLOW (YELLOW); KETONES URINE NEGATIVE (NEGATIVE); LEUKOCYTE ESTERASE URINE NEGATIVE (NEGATIVE); NITRITE URINE NEGATIVE (NEGATIVE); OCCULT BLOOD URINE TRACE (NEGATIVE); PROTEIN URINE 1+ (NEGATIVE); SPECIFIC GRAVITY URINE 1.021 (1.005-1.030); UROBILINOGEN URINE 0.2 E.U./dL (0.2-1.0)
[2018-03-10 04:02] LABS: *BARBITURATES SCREEN URINE NEGATIVE (NEGATIVE)
[2018-03-10 04:03] LABS: *AMPHETAMINES SCREEN URINE NEGATIVE (NEGATIVE); *BENZODIAZEPINES SCREEN URINE PRESUMTIVE POSITIVE (NEGATIVE); *COCAINE SCREEN URINE NEGATIVE (NEGATIVE); CANNABINOID URINE SCREEN PRESUMTIVE POSITIVE (NEGATIVE); METHADONE URINE SCREEN NEGATIVE (NEGATIVE); OPIATES URINE SCREEN PRESUMTIVE POSITIVE (NEGATIVE); PHENCYCLIDINE URINE SCREEN NEGATIVE (NEGATIVE)
[2018-03-10] MEDS ORDERED: KETOROLAC 15MG/ML VIAL IV ONE (04:30)
[2018-03-10] MEDS ORDERED: ONDANSETRON HCL 4MG/2ML VIAL IV ONE ×2 (04:30→06:30)
[2018-03-10] MEDS ORDERED: CHLORDIAZEPOXIDE 25MG CAPSULE PO ONE (05:45)
[2018-03-10] MEDS ORDERED: LORAZEPAM 2MG/ML CPJ IV ONE (06:30)
[2018-03-10 07:00] VITALS: BP 111/67
== END 2018-03-10 09:20 | disposition short-term general hospital (02) ==
LOC: ER 03-10 01:25
DX: R07.9 Chest pain, unspecified (principal); F41.9 Anxiety disorder, unspecified; I25.10 Atherosclerotic heart disease of native coronary artery without angina pectoris; F17.200 Nicotine dependence, unspecified, uncomplicated; Z88.3 Allergy status to other anti-infective agents; Z79.82 Long term (current) use of aspirin; Z95.810 Presence of automatic (implantable) cardiac defibrillator
CPT/HCPCS: 36415; 70450; 71045; 80053; 80305; 81003; 83880; 84484; 85025; 85610; 93005; 96374; 96375; 96376; 99285; G0482; J1885; J2060; J2270; J2405; J7040

== ENCOUNTER 2018-05-19 09:20 | Inpatient (IN) | payer OTHER ==
[~2018-05-19] VITALS: Ht 175.3 cm; Wt 73.0 kg
[~2018-05-19 09:20] MED LIST: BISO5TAB13 PO; FAMO40TA70 PO
[2018-05-19] MEDS ORDERED: SODIUM CHLORIDE 0.9% 1,000 ML IV ONE (09:41)
[2018-05-19] MEDS ORDERED: KETOROLAC 30MG/ML VIAL IV STA (09:41)
[2018-05-19] MEDS ORDERED: CHLORDIAZEPOXIDE 25MG CAPSULE PO ONE (09:45)
[2018-05-19] MEDS ORDERED: ONDANSETRON HCL 4MG/2ML VIAL IV ONE (10:15)
[2018-05-19] MEDS ORDERED: MAGNESIUM 2 G PREMIX 50 ML IV ONE (10:15)
[2018-05-19] MEDS ORDERED: LORAZEPAM 2MG/ML CPJ IV ONE (10:15)
[2018-05-19 10:16] LABS: HEMATOCRIT. 38.1 % (42.0-52.0); HEMOGLOBIN. 12.8 g/dL (14.0-18.0); MEAN CORPUSCULAR HEMOGLOBIN 29.9 pg (28.0-32.0); MEAN CORPUSCULAR VOLUME 88.9 fL (80.0-94.0); MEAN PLATELET VOLUME 8.3 fl (7.4-10.4); PLATELET 147 x1000/uL (130-400); RED BLOOD CELL COUNT 4.29 mill/uL (4.7-6.1); RED CELL DISTRIBUTION WIDTH 14.4 % (11.6-14.6)
[2018-05-19 10:18] LABS: CHLORIDE 96 mEq/L (98-107)
[2018-05-19 10:22] LABS: ETHANOL BLOOD < 10 mg/dL
[2018-05-19 11:21] LABS: PLATELET ESTIMATE NORMAL
[2018-05-19 13:05] LABS: *AMPHETAMINES SCREEN URINE NEGATIVE (NEGATIVE)
[2018-05-19 13:06] LABS: *BARBITURATES SCREEN URINE NEGATIVE (NEGATIVE); *BENZODIAZEPINES SCREEN URINE PRESUMTIVE POSITIVE (NEGATIVE); *COCAINE SCREEN URINE NEGATIVE (NEGATIVE); METHADONE URINE SCREEN NEGATIVE (NEGATIVE); OPIATES URINE SCREEN NEGATIVE (NEGATIVE)
[2018-05-19 13:07] LABS: CANNABINOID URINE SCREEN PRESUMTIVE POSITIVE (NEGATIVE); PHENCYCLIDINE URINE SCREEN NEGATIVE (NEGATIVE)
[2018-05-19] MEDS: SODIUM CHLORIDE 0.9% 1,000 ML IV SCH (15:37)
[2018-05-19] MEDS ORDERED: CLONIDINE 0.1MG TABLET PO PRN (15:45)
[2018-05-19] MEDS ORDERED: LORAZEPAM 2MG/ML CPJ IV PRN (15:45)
[2018-05-19] MEDS ORDERED: MAGNESIUM/ALUMINUM HYDROXIDE/SIMETHICONE 30ML UDC PO PRN (15:45)
[2018-05-19] MEDS ORDERED: DIPHENHYDRAMINE 50MG/ML VIAL IV PRN (15:45)
[2018-05-19] MEDS ORDERED: ACETAMINOPHEN 325MG TABLET PO PRN (15:45)
[2018-05-19 15:49] VITALS: BP 132/76
[2018-05-19 16:00] VITALS: BP 137/84
[2018-05-19] MEDS ORDERED: ONDANSETRON 4MG ODT PO PRN (16:15)
[2018-05-19] MEDS ORDERED: MVI, ADULT NO.1 10 ML, FOLIC ACID 1 MG, THIAMINE HCL 100 MG in SODIUM CHLORIDE 0.9% 1,0... IV NR ×4 (17:30)
[2018-05-19 18:00] VITALS: BP 124/78
[2018-05-19 20:00] VITALS: BP 130/83
[2018-05-19] MEDS: FAMOTIDINE 20MG TABLET PO SCH (20:59)
[2018-05-19] MEDS: CHLORDIAZEPOXIDE 25MG CAPSULE PO SCH (21:01)
[2018-05-19 22:00] VITALS: BP 127/60
[2018-05-20] VITALS (7 sets, daily range): BP systolic 118–149; BP diastolic 71–85
[2018-05-20] MEDS: CHLORDIAZEPOXIDE 25MG CAPSULE PO SCH ×2 (06:32→15:00)
[2018-05-20] MEDS: SODIUM CHLORIDE 0.9% 1,000 ML IV SCH (06:34)
[2018-05-20 07:03] LABS: CHLORIDE 99 mEq/L (98-107)
[2018-05-20 07:18] LABS: PHOSPHORUS 1.9 mg/dL (2.5-4.9)
[2018-05-20 07:21] LABS: CREATINE KINASE 139 IU/L (39-308)
[2018-05-20 07:23] LABS: CREATINE KINASE MB FRACTION < 0.5 ng/mL (0.5-3.6)
[2018-05-20] MEDS ORDERED: POTASSIUM CHLORIDE 20MEQ TABLET SR PO NR (07:45)
[2018-05-20 08:33] LABS: BASOPHILS % 0.7 % (0.0-2.0); EOSINOPHILS % 0.5 % (0.0-5.0); HEMATOCRIT. 32.9 % (42.0-52.0); HEMOGLOBIN. 10.9 g/dL (14.0-18.0); LYMPHOCYTES % 30.9 % (20.0-50.0); MEAN CORPUSCULAR VOLUME 90.1 fL (80.0-94.0); MEAN PLATELET VOLUME 9.7 fl (7.4-10.4); MONOCYTES % 7.8 % (2.0-8.0); NEUTROPHILS % 60.1 % (40.0-76.0); PLATELET 81 x1000/uL (130-400); RED BLOOD CELL COUNT 3.65 mill/uL (4.7-6.1); RED CELL DISTRIBUTION WIDTH 14.5 % (11.6-14.6)
[2018-05-20] MEDS ORDERED: POTASSIUM PHOS,M-BASIC-D-BASIC 20 MMOL in DEXT 5% WATER 243.3333 ML IV NR (09:30)
[2018-05-20] MEDS: FAMOTIDINE 20MG TABLET PO SCH (10:49)
== END 2018-05-20 20:16 | disposition short-term general hospital (02) | DRG 313 ==
LOC: ER 09:20 → 5EST 12:44 → ENRESERV 13:18
PROVIDERS: ADMIT Internal Medicine; ATTEND Internal Medicine
DX: R07.89 Other chest pain (principal); F10.239 Alcohol dependence with withdrawal, unspecified; I47.2 Ventricular tachycardia; K70.9 Alcoholic liver disease, unspecified; E83.42 Hypomagnesemia; E78.5 Hyperlipidemia, unspecified; F32.9 Major depressive disorder, single episode, unspecified; R74.0 Nonspecific elevation of levels of transaminase and lactic acid dehydrogenase [LDH]; F19.10 Other psychoactive substance abuse, uncomplicated; F41.9 Anxiety disorder, unspecified; I10 Essential (primary) hypertension; Z82.49 Family history of ischemic heart disease and other diseases of the circulatory system; Z86.74 Personal history of sudden cardiac arrest; Z95.810 Presence of automatic (implantable) cardiac defibrillator; Z88.1 Allergy status to other antibiotic agents; Z79.899 Other long term (current) drug therapy
CPT/HCPCS: 36415; 71045; 80048; 80053; 80305; 82550; 82553; 83735; 84100; 84484; 85025; 93005; 96361; 96365; 96366; 96375; 99291; G0482; J1885; J2060; J2405; J3411; J3475; J3490; J7030; J7060

== ENCOUNTER 2018-06-17 15:51 | Inpatient (IN) | payer OTHER ==
[~2018-06-17] VITALS: Ht 175.3 cm; Wt 70.1 kg
[2018-06-17] MEDS ORDERED: ONDANSETRON HCL 4MG/2ML VIAL IV STA (16:42)
[2018-06-17] MEDS ORDERED: SODIUM CHLORIDE 0.9% 1,000 ML IV ONE (16:42)
[2018-06-17] MEDS ORDERED: MORPHINE SULFATE 4 MG/ML CPJ (NOT FOR IM USE) IV STA (16:42)
[2018-06-17] MEDS ORDERED: PANTOPRAZOLE SODIUM 40 MG/VIAL IV ONE (16:45)
[2018-06-17 17:27] LABS: BASOPHILS % 0.8 % (0.0-2.0); EOSINOPHILS % 0.1 % (0.0-5.0); HEMATOCRIT. 44.3 % (42.0-52.0); HEMOGLOBIN. 14.9 g/dL (14.0-18.0); LYMPHOCYTES % 41.4 % (20.0-50.0); MEAN CORPUSCULAR HEMOGLOBIN 29.7 pg (28.0-32.0); MEAN CORPUSCULAR VOLUME 88.4 fL (80.0-94.0); MONOCYTES % 6.4 % (2.0-8.0); NEUTROPHILS % 51.3 % (40.0-76.0); PLATELET 134 x1000/uL (130-400); RED BLOOD CELL COUNT 5.01 mill/uL (4.7-6.1); RED CELL DISTRIBUTION WIDTH 15.3 % (11.6-14.6)
[2018-06-17 17:32] LABS: CHLORIDE 96 mEq/L (98-107)
[2018-06-17 17:39] LABS: D-DIMER 0.57 mg/L FEU (<0.50); INR 1.1; PARTIAL THROMBOPLASTIN TIME 26.4 sec (23.4-31.0); PROTHROMBIN TIME 10.8 sec (9.1-11.1)
[2018-06-17 17:44] LABS: ETHANOL BLOOD 314 mg/dL
[2018-06-17] MEDS ORDERED: ASPIRIN 81MG TABLET PO ONE (18:45)
[2018-06-17] MEDS ORDERED: IOHEXOL-350 100 ML BOTTLE ONE (21:23)
[2018-06-17] MEDS ORDERED: BISO5TAB13 PO (22:59)
[2018-06-17] MEDS ORDERED: FAMO-135 PO (22:59)
[2018-06-18] VITALS (8 sets, daily range): BP systolic 121–138; BP diastolic 68–89
[2018-06-18] MEDS ORDERED: ONDANSETRON HCL 4MG/2ML VIAL IV PRN
[2018-06-18] MEDS: CHLORDIAZEPOXIDE 25MG CAPSULE PO SCH ×4 (00:36→21:12)
[2018-06-18] MEDS: LORAZEPAM 2MG/ML CPJ IV PRN ×4 (00:37→22:02)
[2018-06-18] MEDS: ONDANSETRON 4MG ODT PO PRN ×2 (00:40→04:45)
[2018-06-18] MEDS: MORPHINE SULFATE 4 MG/ML CPJ (NOT FOR IM USE) IV PRN ×2 (05:27→19:53)
[2018-06-18] MEDS ORDERED: CHLORDIAZEPOXIDE 25MG CAPSULE PO SCH (06:00)
[2018-06-18] MEDS: METOPROLOL TARTRATE 25MG TABLET PO SCH ×2 (08:53→20:25)
[2018-06-18] MEDS ORDERED: MULTIVITAMINS,THER W-MINERALS TABLET PO SCH (09:00)
[2018-06-18] MEDS ORDERED: ASPIRIN 325MG EC TABLET PO SCH (09:00)
[2018-06-18] MEDS ORDERED: THIAMINE HCL 100MG TABLET PO SCH (09:00)
[2018-06-18] MEDS ORDERED: FOLIC ACID 1MG TABLET PO SCH (09:00)
[2018-06-18 11:13] LABS: HEMOGLOBIN 12.5 g/dL (14.0-18.0)
[2018-06-19] MEDS ORDERED: OMEPRAZOLE 20MG CAPSULE EXTENDED RELEASE PO SCH (06:45)
== END 2018-06-18 22:55 | disposition short-term general hospital (02) | DRG 433 ==
LOC: ER 15:51 → 5WST 19:21 → ENRESERV 20:44
PROVIDERS: ADMIT Internal Medicine; ATTEND Internal Medicine
DX: K70.30 Alcoholic cirrhosis of liver without ascites (principal); K92.0 Hematemesis; K80.20 Calculus of gallbladder without cholecystitis without obstruction; D64.9 Anemia, unspecified; E87.8 Other disorders of electrolyte and fluid balance, not elsewhere classified; F12.90 Cannabis use, unspecified, uncomplicated; I10 Essential (primary) hypertension; I25.10 Atherosclerotic heart disease of native coronary artery without angina pectoris; F10.20 Alcohol dependence, uncomplicated; R79.1 Abnormal coagulation profile; N62 Hypertrophy of breast; Y90.8 Blood alcohol level of 240 mg/100 ml or more; Z86.74 Personal history of sudden cardiac arrest; Z88.1 Allergy status to other antibiotic agents
CPT/HCPCS: 36415; 71045; 71275; 74176; 80053; 83690; 83880; 84484; 85014; 85018; 85025; 85379; 85610; 85730; 86850; 86900; 93005; 93306; 96361; 96374; 96375; 99285; C9113; G0482; J2060; J2270; J2405; J7030; Q0162; Q9967

== ENCOUNTER 2018-08-02 08:16 | Inpatient (IN) | payer OTHER ==
[~2018-08-02] VITALS: Ht 172.7 cm; Wt 70.3 kg
[~2018-08-02 08:16] MED LIST changes: +FAMO-135 PO; -FAMO40TA70 PO
[2018-08-02] MEDS ORDERED: MORPHINE SULFATE 4 MG/ML CPJ (NOT FOR IM USE) IV STA (08:42)
[2018-08-02] MEDS ORDERED: ONDANSETRON HCL 4MG/2ML INJ IV STA (08:42)
[2018-08-02] MEDS ORDERED: LORAZEPAM 2MG/ML CPJ IV ONE ×2 (08:45→11:30)
[2018-08-02] MEDS ORDERED: ASPIRIN 325MG TABLET PO ONE (08:45)
[2018-08-02] MEDS ORDERED: CHLORDIAZEPOXIDE 25MG CAPSULE PO ONE (08:45)
[2018-08-02] MEDS ORDERED: FOLIC ACID 1 MG, THIAMINE HCL 100 MG, MVI, ADULT NO.1 10 ML in DEXTROSE 5% WATER 1,000 ML IV ONE ×4 (08:45)
[2018-08-02] MEDS ORDERED: ASPIRIN 81MG TABLET ONE ×2 (09:02→09:04)
[2018-08-02 09:08] LABS: CHLORIDE 83 mEq/L (98-107)
[2018-08-02 09:12] LABS: ETHANOL BLOOD < 10 mg/dL
[2018-08-02 09:26] LABS: BASOPHILS % 0.3 % (0.0-2.0); HEMATOCRIT. 43.2 % (42.0-52.0); HEMOGLOBIN. 14.8 g/dL (14.0-18.0); LYMPHOCYTES % 11.5 % (20.0-50.0); MEAN CORPUSCULAR HEMOGLOBIN 29.7 pg (28.0-32.0); MEAN CORPUSCULAR VOLUME 86.5 fL (80.0-94.0); MEAN PLATELET VOLUME 9.6 fl (7.4-10.4); MONOCYTES % 11.9 % (2.0-8.0); NEUTROPHILS % 76.3 % (40.0-76.0); PLATELET 81 x1000/uL (130-400); RED BLOOD CELL COUNT 4.99 mill/uL (4.7-6.1); RED CELL DISTRIBUTION WIDTH 16.2 % (11.6-14.6)
[2018-08-02] MEDS ORDERED: POTASSIUM CHLORIDE INJ 40 MEQ in DEXT 5% WATER 250 ML IV ONE (09:45)
[2018-08-02] MEDS ORDERED: DIPHENHYDRAMINE 50MG/ML VIAL IV PRN (10:30)
[2018-08-02] MEDS ORDERED: NA PHOS,M-B/NA PHOS,DI-BA ENEMA 118ML PR PRN (10:30)
[2018-08-02] MEDS ORDERED: MVI, ADULT NO.1 10 ML, FOLIC ACID 1 MG, THIAMINE HCL 100 MG in SODIUM CHLORIDE 0.9% 1,0... IV SCH ×4 (10:30)
[2018-08-02] MEDS ORDERED: DOCUSATE SODIUM 100MG CAPSULE PO PRN (10:30)
[2018-08-02] MEDS ORDERED: HYDROCODONE/ACETAMINOPHEN 5/325MG TABLET PO PRN (10:30)
[2018-08-02] MEDS ORDERED: ONDANSETRON HCL 4MG/2ML INJ IV PRN (10:30)
[2018-08-02] MEDS ORDERED: IPRATROPIUM/ALBUTEROL 0.5-3(2.5)MG/3ML NEB INH PRN (10:30)
[2018-08-02] MEDS ORDERED: MAGNESIUM/ALUMINUM HYDROXIDE/SIMETHICONE 30ML UDC PO PRN (10:30)
[2018-08-02] MEDS ORDERED: GUAIFENESIN 200MG/10ML SUGAR FREE UDC PO PRN (10:30)
[2018-08-02 12:00] VITALS: BP 122/89
[2018-08-02] MEDS ORDERED: ENOXAPARIN 40MG/0.4ML SYR SUBCUT SCH (14:00)
[2018-08-02 16:00] VITALS: BP 142/99
[2018-08-02 16:59] VITALS: BP 122/89
[2018-08-02] MEDS: LORAZEPAM 2MG/ML CPJ IV PRN (18:24)
[2018-08-02 20:00] VITALS: BP 114/87
[2018-08-02] MEDS: ACETAMINOPHEN 325MG TABLET PO PRN (20:29)
[2018-08-02] MEDS: HYDROMORPHONE HCL/PF 2MG/ML CPJ IV PRN (20:35)
[2018-08-02] MEDS ORDERED: ZOLPIDEM TARTRATE 5MG TABLET PO PRN (21:00)
[2018-08-03] VITALS: BP 117/71
[2018-08-03] MEDS: ACETAMINOPHEN 325MG TABLET PO PRN (02:38)
[2018-08-03 04:00] VITALS: BP 148/81
[2018-08-03 06:52] LABS: BASOPHILS % 0.6 % (0.0-2.0); EOSINOPHILS % 0.4 % (0.0-5.0); HEMATOCRIT. 39.8 % (42.0-52.0); HEMOGLOBIN. 13.7 g/dL (14.0-18.0); LYMPHOCYTES % 27.1 % (20.0-50.0); MEAN CORPUSCULAR HEMOGLOBIN 30.5 pg (28.0-32.0); MEAN CORPUSCULAR VOLUME 88.6 fL (80.0-94.0); MEAN PLATELET VOLUME 10.1 fl (7.4-10.4); NEUTROPHILS % 60.9 % (40.0-76.0); PLATELET 76 x1000/uL (130-400); RED BLOOD CELL COUNT 4.49 mill/uL (4.7-6.1)
[2018-08-03 07:22] LABS: CHLORIDE 84 mEq/L (98-107)
[2018-08-03 07:32] LABS: LDL CHOLESTEROL 120 mg/dL (5-100)
[2018-08-03 07:34] LABS: HDL CHOLESTEROL 64 mg/dL (40-59)
[2018-08-03 08:00] VITALS: BP 143/95
[2018-08-03] MEDS ORDERED: ASPIRIN 81MG EC TABLET PO SCH (09:00)
[2018-08-03] MEDS: HYDROMORPHONE HCL/PF 2MG/ML CPJ IV PRN ×3 (09:15→20:29)
[2018-08-03 12:00] VITALS: BP 159/103
[2018-08-03] MEDS: LORAZEPAM 2MG/ML CPJ IV PRN ×2 (12:52→18:05)
[2018-08-03 16:00] VITALS: BP 138/96
[2018-08-03] MEDS: CLONIDINE 0.1MG TABLET PO PRN ×2 (16:19→20:28)
[2018-08-03] MEDS ORDERED: POTASSIUM CHLORIDE 20MEQ TABLET SR PO NR (16:45)
[2018-08-03 20:33] VITALS: BP 160/94
== END 2018-08-03 21:00 | disposition short-term general hospital (02) | DRG 313 ==
LOC: ER 08:24 → 8WST 10:20 → ENRESERV 11:00
PROVIDERS: ADMIT Internal Medicine; ATTEND Internal Medicine
DX: R07.89 Other chest pain (principal); F10.239 Alcohol dependence with withdrawal, unspecified; E86.0 Dehydration; I10 Essential (primary) hypertension; K21.9 Gastro-esophageal reflux disease without esophagitis; K29.70 Gastritis, unspecified, without bleeding; K74.60 Unspecified cirrhosis of liver; Z88.8 Allergy status to other drugs, medicaments and biological substances; Z95.810 Presence of automatic (implantable) cardiac defibrillator; Z79.899 Other long term (current) drug therapy
CPT/HCPCS: 36415; 71045; 74176; 80048; 80053; 80061; 83690; 83735; 83880; 84439; 84443; 84484; 85025; 93005; 96365; 96366; 96375; 99285; G0482; J1170; J2060; J2270; J2405; J3411; J3480; J3490; J7060; J7070

== ENCOUNTER 2019-03-01 02:32 | Emergency (ER) | payer OTHER ==
[~2019-03-01] VITALS: Ht 182.9 cm; Wt 84.0 kg
[2019-03-01] MEDS ORDERED: ASPIRIN 81MG TABLET PO ONE (03:15)
[2019-03-01] MEDS ORDERED: MAGNESIUM/ALUMINUM HYDROXIDE/SIMETHICONE 30ML UDC PO ONE (03:15)
[2019-03-01] MEDS ORDERED: VISCOUS LIDOCAINE 2% 15 ML UDC PO ONE (03:15)
[2019-03-01] MEDS ORDERED: ONDANSETRON HCL 4MG/2ML INJ IV ONE (03:45)
[2019-03-01 03:52] LABS: CHLORIDE 96 mEq/L (98-107)
[2019-03-01 03:53] LABS: HEMATOCRIT. 37.4 % (42.0-52.0); HEMOGLOBIN. 12.7 g/dL (14.0-18.0); MEAN CORPUSCULAR HEMOGLOBIN 33.4 pg (28.0-32.0); MEAN CORPUSCULAR VOLUME 98.2 fL (80.0-94.0); MEAN PLATELET VOLUME 10.3 fl (7.4-10.4); PLATELET 51 x1000/uL (130-400); RED CELL DISTRIBUTION WIDTH 13.5 % (11.6-14.6)
[2019-03-01 05:41] LABS: PLATELET ESTIMATE DECREASED
[2019-03-01] MEDS ORDERED: LORAZEPAM 2MG/ML CPJ IM STA (06:04)
[2019-03-01] MEDS ORDERED: LORAZEPAM 2MG/ML CPJ ONE (06:05)
[2019-03-01] MEDS ORDERED: MORPHINE SULFATE 4 MG/ML CPJ (NOT FOR IM USE) IV ONE (09:15)
[2019-03-01 10:00] VITALS: BP 118/77
== END 2019-03-01 10:30 | disposition short-term general hospital (02) ==
LOC: ER 02:32 → CANBEDREQ 18:50
DX: R07.89 Other chest pain (principal); G40.909 Epilepsy, unspecified, not intractable, without status epilepticus; I25.2 Old myocardial infarction; F10.21 Alcohol dependence, in remission; Z95.0 Presence of cardiac pacemaker; Z88.3 Allergy status to other anti-infective agents
CPT/HCPCS: 36415; 70450; 71045; 80053; 83880; 84484; 85025; 93005; 96372; 96374; 96375; 99285; J2060; J2270; J2405; Z7610

== ENCOUNTER 2019-04-11 08:18 | Emergency (ER) | payer OTHER ==
[~2019-04-11] VITALS: Ht 175.3 cm; Wt 70.0 kg
[2019-04-11] MEDS ORDERED: SODIUM CHLORIDE 0.9% 1,000 ML IV ONE ×2 (08:56→10:15)
[2019-04-11] MEDS ORDERED: MORPHINE SULFATE 4 MG/ML CPJ (NOT FOR IM USE) IV STA (08:56)
[2019-04-11] MEDS ORDERED: ONDANSETRON HCL 4MG/2ML INJ IV STA (08:56)
[2019-04-11 09:10] LABS: HEMATOCRIT. 25.5 % (42.0-52.0); HEMOGLOBIN. 8.6 g/dL (14.0-18.0); LYMPHOCYTES % 24.3 % (20.0-50.0); MEAN CORPUSCULAR HEMOGLOBIN 32.6 pg (28.0-32.0); MEAN CORPUSCULAR VOLUME 97.4 fL (80.0-94.0); MEAN PLATELET VOLUME 9.7 fl (7.4-10.4); MONOCYTES % 3.5 % (2.0-8.0); NEUTROPHILS % 71.2 % (40.0-76.0); PLATELET 64 x1000/uL (130-400); RED BLOOD CELL COUNT 2.62 mill/uL (4.7-6.1)
[2019-04-11 09:15] LABS: CHLORIDE 98 mEq/L (98-107)
[2019-04-11 09:19] LABS: INR 1.4; PROTHROMBIN TIME 14.3 sec (9.6-11.0)
[2019-04-11 09:36] LABS: ETHANOL BLOOD 331 mg/dL
[2019-04-11 09:42] LABS: CLARITY URINE CLEAR (CLEAR); COLOR URINE DARK YELLOW (YELLOW); KETONES URINE TRACE (NEGATIVE); LEUKOCYTE ESTERASE URINE NEGATIVE (NEGATIVE); NITRITE URINE NEGATIVE (NEGATIVE); OCCULT BLOOD URINE NEGATIVE (NEGATIVE); PH URINE 5.5 (4.5-8.0); PROTEIN URINE NEGATIVE (NEGATIVE); SPECIFIC GRAVITY URINE 1.017 (1.005-1.030); UROBILINOGEN URINE 0.2 E.U./dL (0.2-1.0)
[2019-04-11] MEDS ORDERED: FAMOTIDINE 20MG/2ML VIAL IV ONE (10:15)
[2019-04-11] MEDS ORDERED: LORAZEPAM 2MG/ML CPJ IV ONE (10:15)
[2019-04-11] MEDS ORDERED: ONDANSETRON HCL 4MG/2ML INJ IV ONE (10:15)
[2019-04-11 10:26] LABS: *BARBITURATES SCREEN URINE NEGATIVE (NEGATIVE); *BENZODIAZEPINES SCREEN URINE PRESUMTIVE POSITIVE (NEGATIVE); *COCAINE SCREEN URINE NEGATIVE (NEGATIVE)
[2019-04-11 10:28] LABS: CANNABINOID URINE SCREEN PRESUMTIVE POSITIVE (NEGATIVE); METHADONE URINE SCREEN NEGATIVE (NEGATIVE); OPIATES URINE SCREEN NEGATIVE (NEGATIVE); PHENCYCLIDINE URINE SCREEN NEGATIVE (NEGATIVE)
[2019-04-11 10:35] LABS: *AMPHETAMINES SCREEN URINE NEGATIVE (NEGATIVE)
[2019-04-11 12:15] VITALS: BP 98/53
== END 2019-04-11 12:24 | disposition short-term general hospital (02) ==
LOC: ER 08:18
DX: T51.0X1A Toxic effect of ethanol, accidental (unintentional), initial encounter (principal); K92.2 Gastrointestinal hemorrhage, unspecified; D64.9 Anemia, unspecified; I11.9 Hypertensive heart disease without heart failure; Z95.0 Presence of cardiac pacemaker; Z88.1 Allergy status to other antibiotic agents; Y92.89 Other specified places as the place of occurrence of the external cause
CPT/HCPCS: 36415; 71045; 80053; 80305; 80320; 81003; 83690; 85025; 85610; 86850; 86900; 86901; 93005; 96361; 96374; 96375; 99291; J2060; J2270; J2405; J3490; J7030; Z7610; G0480